=== PATIENT | male | born 1955 | race African-American/Black ===

== ENCOUNTER 2023-12-05 15:42 | Observation (INO) ==
--- NOTE | 2023-12-05 16:41 | DR.GENAD ---
HPI Time Seen Time Seen by Provider: 12/05/23 16:39 PCP Primary Care Physician: Ayaka Complaint/Symptoms Chief Complaint Doctors Comments: 68-year-old male sent in to the emergency room for evaluation. Has been having swelling of his left upper extremity over the past week. No known trauma. Has had a slight cough, not very productive. Denies fevers, having some show chills. No nausea, vomiting, bowel or bladder issues. Seen and medical provider's office, referred here for admission for pneumonia (dx'd with that last pm at another ER), possible [facility] admission as well. Patient with bilateral AKAs. Patient provided prescription bottles to the nurse, they are all empty. Chief Complaint:: Patient brought by daughter to ED after visit with Jenny Sinha in [place]. She called Dr Marley and he wanted patient evaluated in the ED. Patient 's chief complaint is edema to left arm x 1 week. His daughter states he lives by himself and had a CVA in Oct. THey are seeking [facility] placement in a [facility]. COVID-19 Coronavirus risk:travel/contact w/high risk person: No Has patient experienced Coronavirus symptoms: No Nurses notes reviewed Nurses Notes Review: Yes Source History Provided: Patient and Family Member Mode of Arrival Mode of Arrival: Wheelchair Timing Onset of Chief Complaint: 11/28/23 PMH PMH Past Medical History: Yes Past Medical History: CVA, Diabetes and Hypertension Past Medical History Comment: CA of Lungs? Past Surgical History: Yes Past Surgical History Comment: Bilateral AKA Family History History of Family Medical Conditions: Yes Family Medical History: Diabetes Mellitus, Cancer, Coronary Artery Disease and Hypertension Social History Does patient currently use any type of tobacco product: Yes Have you used tobacco products in the last 12 months: Yes Type of Tobacco Use: Cigarettes Does any household member use tobacco: Yes Alcohol Use: None Do you use any recreational Drugs:: No Lives With: Alone Lives Where: Home Travel Risk Coronavirus risk:travel/contact w/high risk person: No Has patient experienced Coronavirus symptoms: No Infectious screening In the last 2 months have you had wt loss of >10#?: NO Have you had fever, night sweats or hemotysis?: No Have you traveled outside the country in the last 6 months?: No Isolation: Standard ROS Review of Systems Constitutional: Chills and Weakness Eyes: No Symptoms Reported ENTM: No Symptoms Reported Respiratoy: Moist Cough Gastrointestinal/Abdominal: No Symptoms Reported Genitourinary: No Symptoms Reported Neurological: Weakness Musculoskeletal: See HPI Integumentary: No Symptoms Reported Hematologic/Lymphatic: No Symptoms Reported Psychiatric: No Symptoms Reported All Other Systems: Reviewed and Negative PE Vital Signs Vitals: Vital Signs Temperature 97.8 F Pulse Rate 86 Respiratory Rate 14 Blood Pressure 172/93 O2 Sat by Pulse Oximetry 98 General General Appearance: Alert and In No Apparent Distress Eyes Eye exam: PERRL and EOMI ENT ENT Exam: Normal Oropharynx and Mucous Membranes Moist Neck Neck Exam: Normal Inspection and Full ROM Chest Chest Inspection: Normal Inspection Respiratory Respiratory Exam: Normal Lung Sounds Bilat; negative Accessory Muscle Use or Respiratory Distress Cardiovascular Cardiovascular Exam: Regular Rate, Normal Rhythm and Normal Heart Sounds Abdominal Exam Abdominal Exam: Normal Bowel Sounds and Soft; negative Tenderness Extremities Extremities Exam: Edema (L hand/forearm. + pulses intact. + bilateral AKAs.) Back Back Exam: Normal Inspection Neurologic Neurological Exam: Alert, Oriented X3 and CN II-XII Intact; negative Motor Sensory Deficit Skin Skin Exam: Warm and Dry COURSE Treatment Treatment: 60-year-old male sent in for evaluation prior to admission. His edema of the left hand, no known trauma, and has a cough. Reportedly diagnosed with pneumonia at another ER last p.m. Workup initiated. 1941 -chest x-ray shows a rather large consolidation of the right lower lobe, concerning more for mass than true pneumonia to me. Roughly 7 x 5 cms, oval shaped. White count normal. Mild anemia with hemoglobin 10.1 chemistries show elevated glucose at 527, low albumin at 2.0. Patient does have a history of diabetes, has an empty bottle for oral hypoglycemic. Patient given IV fluids, given IV regular insulin 10 units bolus. Not in DKA, more likely poorly controlled type 2 diabetes. Given IV Rocephin for prophylactic coverage of possible pneumonia will pursue a CT of the chest with IV contrast to further delineate the consolidation. Discussed with Dr. Marley after initial examination. Will admit the patient to the hospital. [facility] Labs Reviewed Laboratory Results Reviewed?: Yes 12/10/23 05:17 12/10/23 05:17 Laboratory: 12/05/23 17:25 Blood Blood Culture - Preliminary 12/05/23 16:50 Blood Blood Culture - Preliminary WBC 8.9 X10^3/uL (3.6-10.0) 12/05/23 16:50 RBC 4.09 X10^6/uL (4.7-6.0) L 12/05/23 16:50 Hgb 10.1 g/dL (13.5-18.0) L 12/05/23 16:50 Hct 32.2 % (42.0-54.0) L 12/05/23 16:50 MCV 78.8 fL (80.0-100.0) L 12/05/23 16:50 MCH 24.8 pg (27.0-34.0) L 12/05/23 16:50 MCHC 31.5 g/dL (33.0-35.0) L 12/05/23 16:50 RDW 20.2 % (11.6-16.5) H 12/05/23 16:50 Plt Count 400 X10^3/uL (150.0-450.0) 12/05/23 16:50 Plt Count Comment Adequate (ADEQUATE) 12/05/23 16:50 MPV 7.5 fL (7.4-11.0) 12/05/23 16:50 Neut % (Auto) 76.4 % (42.0-75.0) H 12/05/23 16:50 Lymph % (Auto) 15.9 % (21.0-51.0) L 12/05/23 16:50 [place] % (Auto) 6.8 % (0.0-13.0) 12/05/23 16:50 Eos % (Auto) 0.2 % (0.9-2.9) L 12/05/23 16:50 Baso % (Auto) 0.7 % (0.2-1.0) 12/05/23 16:50 Neut # (Auto) 6.8 x10^3/uL (2.2-4.8) H 12/05/23 16:50 Lymph # (Auto) 1.4 X10^3/uL (1.3-2.9) 12/05/23 16:50 [place] # (Auto) 0.6 x10^3/uL (0.3-0.8) 12/05/23 16:50 Eos # (Auto) 0.0 x10^3/uL (0.0-0.2) 12/05/23 16:50 Baso # (Auto) 0.1 X10^3/uL (0.0-0.1) 12/05/23 16:50 Absolute Nucleated RBC 0.0 /100WBC 12/05/23 16:50 Plt Morphology Comment Normal (NORMAL) 12/05/23 16:50 RBC Morphology Abnormal (NORMAL) 12/05/23 16:50 Hypochromasia Slight A 12/05/23 16:50 Poikilocytosis Slight A 12/05/23 16:50 Anisocytosis 1+ A 12/05/23 16:50 Microcytosis Slight A 12/05/23 16:50 Target Cells Slight A 12/05/23 16:50 Sodium 137 mmol/L (136-145) 12/05/23 16:50 Corrected Sodium 147 mmol/L (136-145) H 12/05/23 16:50 Potassium 4.0 mmol/L (3.5-5.1) 12/05/23 16:50 Chloride 104 mmol/L (98-107) 12/05/23 16:50 Carbon Dioxide 28.6 mmol/L (21-32) 12/05/23 16:50 BUN 8 mg/dL (7-18) 12/05/23 16:50 Creatinine 0.74 mg/dL (0.70-1.30) 12/05/23 16:50 Est GFR (MDRD) Af Amer > 60 (>60) 12/05/23 16:50 Est GFR (MDRD) Non-Af > 60 (>60) 12/05/23 16:50 Glucose 527 mg/dL (65-99) H* 12/05/23 16:50 POC Glucose (mg/dL) 235 mg/dL (65-99) H 12/05/23 21:55 Lactic Acid 2.0 mmol/L (0.4-2.0) 12/05/23 16:50 Calcium 8.4 mg/dL (8.5-10.1) L 12/05/23 16:50 Corrected Calcium 10.0 mg/dL (8.5-10.1) 12/05/23 16:50 Total Bilirubin 0.30 mg/dL (0.2-1.0) 12/05/23 16:50 AST 20 Units/L (15-37) 12/05/23 16:50 ALT 20 Units/L (12-78) 12/05/23 16:50 Alkaline Phosphatase 126 Units/L (46-116) H 12/05/23 16:50 Total Protein 6.6 g/dL (6.4-8.2) 12/05/23 16:50 Albumin 2.0 g/dL (3.4-5.0) L 12/05/23 16:50 Globulin 4.6 g/dL (2.5-4.5) H 12/05/23 16:50 Albumin/Globulin Ratio 0.4 Ratio (1.1-2.1) L 12/05/23 16:50 Lipase 8 Units/L (16-77) L 12/05/23 16:50 XRAY XRAY Interpreted by: Both X-ray Results: EXAM: CHEST W/O CON HISTORY: edema to left arm x 1 week. His daughter states he lives by himself and had a CVA in Oct. 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 Advanced atherosclerotic calcifications are present in the aorta. Extensive coronary atherosclerotic calcifications are present. There is a small right pleural effusion. Limited visualization of the upper abdomen demonstrates multiple calcifications throughout the pancreas consistent with chronic calcific pancreatitis. Bilateral renal calcifications may be vascular or represent stones. Lung windows demonstrate severe bullous emphysema. In the right lower lobe there is a suspicious mass measuring approximately 7 cm with small central cavitation. There are mild adjacent airspace infiltrates. Airspace infiltrates are visible in the left lower lobe. No suspicious bony lesion. IMPRESSION: Large, partially cavitary mass in the right lower lobe is worrisome for possible malignant lesion. An infectious process would be a differential consideration. Severe bullous emphysema. Bibasilar pneumonia. Chronic calcific pancreatitis. Additional findings as described. Dose reduction techniques including automated exposure control (AEC) and adjustment of mA and kv were utilized. THIS IS AN ELECTRONICALLY VERIFIED FINAL REPORT 12/05/2023 8:31 PM - Electronically signed by Tyshawn Strickland MD Opioid Opioid Risk Tool Age (Joel box if 16-45): No History of Preadolescent Sexual Abuse: No Total: 0 Total Score Risk Category: Low Risk Copyright: Ramon AMBROCIO predicting aberrant behaviors Discharge Plan Diagnosis Discharge Problem: Poorly controlled diabetes mellitus, Pneumonia, Lung mass, Weakness Discharge Plan Patient Disposition: 09 ADMITTED INPATIENT Condition: Stable
[2023-12-05 17:40] LABS: BASOPHILS # (AUTO) 0.1 X10^3/uL (0.0-0.1); BASOPHILS % (AUTO) 0.7 % (0.2-1.0); EOSINOPHILS % (AUTO) 0.2 % (0.9-2.9); HEMATOCRIT 32.2 % (42.0-54.0); HEMOGLOBIN 10.1 g/dL (13.5-18.0); LYMPHOCYTES # (AUTO) 1.4 X10^3/uL (1.3-2.9); LYMPHOCYTES % (AUTO) 15.9 % (21.0-51.0); MEAN CORPUSCULAR HEMOGLOBIN 24.8 pg (27.0-34.0); MEAN CORPUSCULAR HGB CONC 31.5 g/dL (33.0-35.0); MEAN CORPUSCULAR VOLUME 78.8 fL (80.0-100.0); MEAN PLATELET VOLUME 7.5 fL (7.4-11.0); MONOCYTES # (AUTO) 0.6 x10^3/uL (0.3-0.8); MONOCYTES % (AUTO) 6.8 % (0.0-13.0); NEUTROPHILS # (AUTO) 6.8 x10^3/uL (2.2-4.8); NEUTROPHILS % (AUTO) 76.4 % (42.0-75.0); PLATELET COUNT 400 X10^3/uL (150.0-450.0); RED BLOOD COUNT 4.09 X10^6/uL (4.7-6.0); RED CELL DISTRIBUTION WIDTH 20.2 % (11.6-16.5); WHITE BLOOD COUNT 8.9 X10^3/uL (3.6-10.0)
[2023-12-05 17:50] LABS: ALANINE AMINOTRANSFERASE 20 Units/L (12-78); ALKALINE PHOSPHATASE 126 Units/L (46-116); ASPARTATE AMINO TRANSFERASE 20 Units/L (15-37); BLOOD UREA NITROGEN 8 mg/dL (7-18); CALCIUM 8.4 mg/dL (8.5-10.1); CARBON DIOXIDE 28.6 mmol/L (21-32); CHLORIDE 104 mmol/L (98-107); COR NA(FOR HYPERGLY) 147 mmol/L (136-145); CREATININE 0.74 mg/dL (0.70-1.30); LIPASE 8 Units/L (16-77); SODIUM 137 mmol/L (136-145); TOTAL PROTEIN 6.6 g/dL (6.4-8.2); eGFR NON BLACK RACES > 60 (>60)
[2023-12-05 18:09] LABS: HYPOCHROMASIA SLIGHT; PLATELET MORPHOLOGY COMMENT NORMAL (NORMAL)
[2023-12-05 18:10] LABS: ANISOCYTOSIS 1+; MICROCYTOSIS SLIGHT; TARGET CELLS SLIGHT
[2023-12-05 18:17] LABS: GLUCOSE 527 mg/dL (65-99)
[2023-12-05] MEDS ORDERED: NS 1,000 ML IV 1,000 ML ONE (18:31)
[2023-12-05] MEDS: NS 1,000 ML IV 500 ML IV ONE (18:35)
[2023-12-05] MEDS ORDERED: ROCEPHIN VIAL 1 GRAM ONE (19:53)
[2023-12-05] MEDS ORDERED: NovoLIN R (or HumuLIN R) ONE (19:54)
[2023-12-05] MEDS: ROCEPHIN VIAL 1 GRAM IVP ONE (19:59)
[2023-12-05] MEDS: NovoLIN R (or HumuLIN R) IV ONE (20:00)
[2023-12-05] MEDS: SNACK - Diabetic Appropriate PO SCH (20:07)
--- NOTE | 2023-12-05 20:27 | RAD ---
EXAM:HAND, LEFTHISTORY:swelling, pain;COMPARISON:None availableTECHNIQUE:Left hand three viewsFINDINGS:Chronic appearing deformities of the distal phalanges of digits 2 and 5. Bone cyst noted in the scaphoid bone. The hand and wrist demonstrates swollen soft tissues. No displaced fracture.IMPRESSION:Chronic appearing deformities of the distal phalanges suggests changes of chronic inflammation which can be seen in disease processes such as Raynaud's disease, scleroderma and inflammatory arthritis. Serum studies may be helpful.Generalized soft tissue swelling is nonspecific.No displaced fracture.THIS IS AN ELECTRONICALLY VERIFIED FINAL REPORT12/05/2023 8:24 PM - Electronically signed by Tyshawn Strickland MD
--- NOTE | 2023-12-05 20:34 | CT ---
EXAM:CHEST W/O CONHISTORY:edema to left arm x 1 week. His daughter states he lives by himself and had a CVA in Oct. They are seeking rodent exterminator [facility]COMPARISON:Frontal chest radiograph December 05, 2023TECHNIQUE:CT of the chest without intravenous contrastFINDINGS:Sensitivity is reduced without intravenous contrast. Advanced atherosclerotic calcifications are present in the aorta. Extensive coronary atherosclerotic calcifications are present. There is a small right pleural effusion.Limited visualization of the upper abdomen demonstrates multiple calcifications throughout the pancreas consistent with chronic calcific pancreatitis. Bilateral renal calcifications may be vascular or represent stones.Lung windows demonstrate severe bullous emphysema. In the right lower lobe there is a suspicious mass measuring approximately 7 cm with small central cavitation. There are mild adjacent airspace infiltrates.Airspace infiltrates are visible in the left lower lobe. No suspicious bony lesion.IMPRESSION:Large, partially cavitary mass in the right lower lobe is worrisome for possible malignant lesion. An infectious process would be a differential consideration.Severe bullous emphysema.Bibasilar pneumonia.Chronic calcific pancreatitis.Additional findings as described.Dose reduction techniques including automated exposure control (AEC) and adjustment of mA and kv were utilized.THIS IS AN ELECTRONICALLY VERIFIED FINAL REPORT12/05/2023 8:31 PM - Electronically signed by Tyshawn Strickland MD
[2023-12-05 23:40] VITALS: BMI 57.7
[2023-12-06] MEDS: NS 1,000 ML IV 1,000 ML IV SCH (00:01)
[2023-12-06 05:10] LABS: BASOPHILS % (AUTO) 0.4 % (0.2-1.0); EOSINOPHILS % (AUTO) 0.4 % (0.9-2.9); HEMATOCRIT 29.3 % (42.0-54.0); HEMOGLOBIN 9.4 g/dL (13.5-18.0); LYMPHOCYTES # (AUTO) 1.5 X10^3/uL (1.3-2.9); LYMPHOCYTES % (AUTO) 15.1 % (21.0-51.0); MEAN CORPUSCULAR HEMOGLOBIN 24.8 pg (27.0-34.0); MEAN CORPUSCULAR VOLUME 77.4 fL (80.0-100.0); MEAN PLATELET VOLUME 7.5 fL (7.4-11.0); MONOCYTES # (AUTO) 0.6 x10^3/uL (0.3-0.8); MONOCYTES % (AUTO) 6.3 % (0.0-13.0); NEUTROPHILS # (AUTO) 7.7 x10^3/uL (2.2-4.8); NEUTROPHILS % (AUTO) 77.8 % (42.0-75.0); PLATELET COUNT 398 X10^3/uL (150.0-450.0); RED BLOOD COUNT 3.79 X10^6/uL (4.7-6.0); RED CELL DISTRIBUTION WIDTH 19.3 % (11.6-16.5); WHITE BLOOD COUNT 9.8 X10^3/uL (3.6-10.0)
[2023-12-06 05:21] LABS: ALANINE AMINOTRANSFERASE 17 Units/L (12-78); ALBUMIN 1.9 g/dL (3.4-5.0); ALKALINE PHOSPHATASE 116 Units/L (46-116); ASPARTATE AMINO TRANSFERASE 17 Units/L (15-37); BLOOD UREA NITROGEN 7 mg/dL (7-18); CALCIUM 8.2 mg/dL (8.5-10.1); CARBON DIOXIDE 25.4 mmol/L (21-32); CHLORIDE 106 mmol/L (98-107); COR CA(FOR HYPOALB) 9.9 mg/dL (8.5-10.1); COR NA(FOR HYPERGLY) 141 mmol/L (136-145); CREATININE 0.47 mg/dL (0.70-1.30); GLUCOSE 130 mg/dL (65-99); POTASSIUM 3.7 mmol/L (3.5-5.1); SODIUM 140 mmol/L (136-145); TOTAL PROTEIN 6.1 g/dL (6.4-8.2); eGFR NON BLACK RACES > 60 (>60)
[2023-12-06] MEDS ORDERED: CONSULT PHARMACY - POTASSIUM & MAGNESIUM XX SCH (06:00)
--- NOTE | 2023-12-06 06:55 | RAD ---
EXAM: Portable chest HISTORY: Pneumonia COMPARISON: 11/27/2023 chest x-ray and chest CT FINDINGS: Heart size is normal. Anahy are normal. Lungs are hyperinflated. Emphysematous changes are presen t in the upper lobes. There is a 6.3 x 8 cm right lower lobe mass present. Although this could repr esent a round pneumonia, neoplasm must be excluded. Pulmonary consultation is recommended in order t o determine if bronchoscopy, PET-CT, or percutaneous biopsy is indicated at this time. Remainder of the lung casey are clear. IMPRESSION: 6.3 x 8 cm right lower lobe mass. Neoplasm must be excluded. Pulmonary consultation recommended. THIS IS AN ELECTRONICALLY VERIFIED FINAL REPORT 12/06/2023 6:52 AM - Electronically signed by Naresh Gallego MD
[2023-12-06] MEDS: ROCEPHIN VIAL 1 GRAM 1 G in NS 100 ML IV 100 ML IV SCH (08:44)
[2023-12-06] MEDS: K-DUR TAB 20 MEQ PO SCH (08:45)
[2023-12-06] MEDS: PULMICORT NEB TX 0.5 MG NEB SCH (08:46)
[2023-12-06] MEDS: DUONEB 0.5 MG/3 MG (3 mL) NEB SCH (08:46)
[2023-12-06 09:04] LABS: POIKILOCYTOSIS SLIGHT
[2023-12-06] MEDS: MAGNESIUM SULFATE 1 GRAM/100 mL PREMIX 1 G/100 ML BAG IV SCH (10:00)
[2023-12-06] MEDS: PROCRIT or EPOGEN VIAL 10,000 UNITS SC ONE (10:00)
[2023-12-06] MEDS: GLUCOPHAGE XR 24-HR PO SCH (10:10)
[2023-12-06] MEDS: ACTOS PO SCH (10:10)
[2023-12-06] MEDS: PLAVIX PO SCH (10:22)
[2023-12-06] MEDS: MICARDIS PO SCH (10:22)
[2023-12-06] MEDS: FARXIGA PO SCH (13:13)
[2023-12-06] MEDS: NovoLIN R (or HumuLIN R) SUBCUT PRN (13:22)
[2023-12-06] MEDS ORDERED: SNACK - Diabetic Appropriate PO SCH (20:00)
[2023-12-07 05:29] LABS: ALANINE AMINOTRANSFERASE 13 Units/L (12-78); ALBUMIN 1.7 g/dL (3.4-5.0); ALKALINE PHOSPHATASE 111 Units/L (46-116); ASPARTATE AMINO TRANSFERASE 20 Units/L (15-37); BLOOD UREA NITROGEN 10 mg/dL (7-18); CALCIUM 8.1 mg/dL (8.5-10.1); CARBON DIOXIDE 23.8 mmol/L (21-32); CHLORIDE 106 mmol/L (98-107); COR CA(FOR HYPOALB) 9.9 mg/dL (8.5-10.1); COR NA(FOR HYPERGLY) 139 mmol/L (136-145); CREATININE 0.62 mg/dL (0.70-1.30); GLUCOSE 150 mg/dL (65-99); MAGNESIUM 1.8 mg/dL (2.0-2.9); SODIUM 138 mmol/L (136-145); TOTAL PROTEIN 5.9 g/dL (6.4-8.2); eGFR NON BLACK RACES > 60 (>60)
[2023-12-07 05:30] LABS: BASOPHILS % (AUTO) 0.2 % (0.2-1.0); EOSINOPHILS % (AUTO) 0.1 % (0.9-2.9); HEMATOCRIT 29.7 % (42.0-54.0); HEMOGLOBIN 9.4 g/dL (13.5-18.0); LYMPHOCYTES # (AUTO) 1.2 X10^3/uL (1.3-2.9); LYMPHOCYTES % (AUTO) 11.4 % (21.0-51.0); MEAN CORPUSCULAR HEMOGLOBIN 24.5 pg (27.0-34.0); MEAN CORPUSCULAR HGB CONC 31.5 g/dL (33.0-35.0); MEAN CORPUSCULAR VOLUME 77.8 fL (80.0-100.0); MEAN PLATELET VOLUME 7.7 fL (7.4-11.0); MONOCYTES # (AUTO) 0.9 x10^3/uL (0.3-0.8); MONOCYTES % (AUTO) 8.6 % (0.0-13.0); NEUTROPHILS # (AUTO) 8.5 x10^3/uL (2.2-4.8); NEUTROPHILS % (AUTO) 79.7 % (42.0-75.0); PLATELET COUNT 386 X10^3/uL (150.0-450.0); RED BLOOD COUNT 3.82 X10^6/uL (4.7-6.0); RED CELL DISTRIBUTION WIDTH 19.7 % (11.6-16.5); WHITE BLOOD COUNT 10.7 X10^3/uL (3.6-10.0)
[2023-12-07] MEDS ORDERED: CONSULT PHARMACY - POTASSIUM & MAGNESIUM XX SCH (06:00)
[2023-12-07] MEDS: MAG-OX TAB PO SCH (08:42)
[2023-12-07] MEDS: FLOMAX PO SCH (08:43)
[2023-12-07] MEDS: PROCRIT or EPOGEN VIAL 10,000 UNITS SC ONE (09:57)
[2023-12-07] MEDS: MAGNESIUM SULFATE 1 GRAM/100 mL PREMIX 1 G/100 ML BAG IV SCH (09:57)
[2023-12-07] MEDS: NS 100 ML IV 100 ML with VENOFER 200 MG IV ONE (14:33)
[2023-12-08 04:42] LABS: HEMOGLOBIN 9.1 g/dL (13.5-18.0); MONOCYTES # (AUTO) 0.8 x10^3/uL (0.3-0.8)
[2023-12-08 04:59] LABS: BASOPHILS % (AUTO) 0.6 % (0.2-1.0); EOSINOPHILS % (AUTO) 0.5 % (0.9-2.9); HEMATOCRIT 28.9 % (42.0-54.0); LYMPHOCYTES # (AUTO) 0.9 X10^3/uL (1.3-2.9); LYMPHOCYTES % (AUTO) 12.1 % (21.0-51.0); MEAN CORPUSCULAR HEMOGLOBIN 24.5 pg (27.0-34.0); MEAN CORPUSCULAR HGB CONC 31.4 g/dL (33.0-35.0); MEAN PLATELET VOLUME 7.5 fL (7.4-11.0); MONOCYTES % (AUTO) 10.6 % (0.0-13.0); NEUTROPHILS # (AUTO) 5.6 x10^3/uL (2.2-4.8); NEUTROPHILS % (AUTO) 76.2 % (42.0-75.0); PLATELET COUNT 419 X10^3/uL (150.0-450.0); RED CELL DISTRIBUTION WIDTH 19.5 % (11.6-16.5); WHITE BLOOD COUNT 7.4 X10^3/uL (3.6-10.0)
[2023-12-08 05:01] LABS: ALANINE AMINOTRANSFERASE 12 Units/L (12-78); ALBUMIN 1.8 g/dL (3.4-5.0); ALKALINE PHOSPHATASE 110 Units/L (46-116); ASPARTATE AMINO TRANSFERASE 15 Units/L (15-37); BLOOD UREA NITROGEN 14 mg/dL (7-18); CARBON DIOXIDE 22.9 mmol/L (21-32); CHLORIDE 106 mmol/L (98-107); COR CA(FOR HYPOALB) 9.8 mg/dL (8.5-10.1); COR NA(FOR HYPERGLY) 139 mmol/L (136-145); CREATININE 0.72 mg/dL (0.70-1.30); GLUCOSE 166 mg/dL (65-99); MAGNESIUM 2.1 mg/dL (2.0-2.9); POTASSIUM 3.9 mmol/L (3.5-5.1); SODIUM 137 mmol/L (136-145); TOTAL PROTEIN 6.1 g/dL (6.4-8.2); eGFR NON BLACK RACES > 60 (>60)
[2023-12-08] MEDS: ROCEPHIN VIAL 1 GRAM IM SCH (08:54)
[2023-12-08] MEDS: NORCO 5/325 MG TAB PO PRN (21:06)
[2023-12-09 05:43] LABS: BASOPHILS # (AUTO) 0.1 X10^3/uL (0.0-0.1); BASOPHILS % (AUTO) 0.8 % (0.2-1.0); EOSINOPHILS # (AUTO) 0.1 x10^3/uL (0.0-0.2); HEMATOCRIT 28.2 % (42.0-54.0); LYMPHOCYTES # (AUTO) 1.4 X10^3/uL (1.3-2.9); LYMPHOCYTES % (AUTO) 20.5 % (21.0-51.0); MEAN CORPUSCULAR HEMOGLOBIN 24.9 pg (27.0-34.0); MEAN CORPUSCULAR VOLUME 77.9 fL (80.0-100.0); MEAN PLATELET VOLUME 7.6 fL (7.4-11.0); MONOCYTES # (AUTO) 0.7 x10^3/uL (0.3-0.8); MONOCYTES % (AUTO) 9.7 % (0.0-13.0); NEUTROPHILS # (AUTO) 4.7 x10^3/uL (2.2-4.8); PLATELET COUNT 437 X10^3/uL (150.0-450.0); RED BLOOD COUNT 3.62 X10^6/uL (4.7-6.0); RED CELL DISTRIBUTION WIDTH 20.1 % (11.6-16.5); WHITE BLOOD COUNT 6.9 X10^3/uL (3.6-10.0)
[2023-12-09 05:55] LABS: ALANINE AMINOTRANSFERASE 8 Units/L (12-78); ALBUMIN 1.9 g/dL (3.4-5.0); ALKALINE PHOSPHATASE 113 Units/L (46-116); ASPARTATE AMINO TRANSFERASE 19 Units/L (15-37); BLOOD UREA NITROGEN 19 mg/dL (7-18); CALCIUM 8.3 mg/dL (8.5-10.1); CARBON DIOXIDE 23.6 mmol/L (21-32); CHLORIDE 107 mmol/L (98-107); COR NA(FOR HYPERGLY) 139 mmol/L (136-145); CREATININE 0.66 mg/dL (0.70-1.30); GLUCOSE 162 mg/dL (65-99); SODIUM 138 mmol/L (136-145); TOTAL PROTEIN 6.3 g/dL (6.4-8.2); eGFR NON BLACK RACES > 60 (>60)
[2023-12-09 06:03] LABS: ANISOCYTOSIS 1+; HYPOCHROMASIA SLIGHT; MICROCYTOSIS SLIGHT; PLATELET MORPHOLOGY COMMENT NORMAL (NORMAL); TARGET CELLS PRESENT
[2023-12-09] MEDS ORDERED: CONSULT PHARMACY - POTASSIUM & MAGNESIUM XX SCH ×2 (08:00→12:00)
[2023-12-09] MEDS: MAG-OX TAB PO SCH (09:34)
[2023-12-09] MEDS: XYLOCAINE 1 % (PLAIN) IJ SCH (09:34)
[2023-12-09] MEDS: NICOTINE PATCH TD SCH (17:31)
[2023-12-10 05:58] LABS: EOSINOPHILS % (AUTO) 0.4 % (0.9-2.9); MONOCYTES # (AUTO) 0.7 x10^3/uL (0.3-0.8); WHITE BLOOD COUNT 8.8 X10^3/uL (3.6-10.0)
[2023-12-10 06:02] LABS: BLOOD UREA NITROGEN 17 mg/dL (7-18); CALCIUM 8.4 mg/dL (8.5-10.1); CARBON DIOXIDE 23.2 mmol/L (21-32); CHLORIDE 106 mmol/L (98-107); CREATININE 0.65 mg/dL (0.70-1.30); GLUCOSE 86 mg/dL (65-99); POTASSIUM 3.7 mmol/L (3.5-5.1); eGFR NON BLACK RACES > 60 (>60)
[2023-12-10 06:03] LABS: BASOPHILS # (AUTO) 0.1 X10^3/uL (0.0-0.1); BASOPHILS % (AUTO) 0.6 % (0.2-1.0); HEMATOCRIT 29.5 % (42.0-54.0); HEMOGLOBIN 9.3 g/dL (13.5-18.0); LYMPHOCYTES # (AUTO) 1.5 X10^3/uL (1.3-2.9); LYMPHOCYTES % (AUTO) 16.5 % (21.0-51.0); MEAN CORPUSCULAR HEMOGLOBIN 24.7 pg (27.0-34.0); MEAN CORPUSCULAR HGB CONC 31.4 g/dL (33.0-35.0); MEAN CORPUSCULAR VOLUME 78.6 fL (80.0-100.0); MEAN PLATELET VOLUME 7.7 fL (7.4-11.0); MONOCYTES % (AUTO) 7.9 % (0.0-13.0); NEUTROPHILS # (AUTO) 6.6 x10^3/uL (2.2-4.8); NEUTROPHILS % (AUTO) 74.6 % (42.0-75.0); PLATELET COUNT 467 X10^3/uL (150.0-450.0); RED BLOOD COUNT 3.75 X10^6/uL (4.7-6.0); RED CELL DISTRIBUTION WIDTH 19.7 % (11.6-16.5)
[2023-12-10 06:25] LABS: ALANINE AMINOTRANSFERASE 10 Units/L (12-78); ALBUMIN 1.9 g/dL (3.4-5.0); ALKALINE PHOSPHATASE 112 Units/L (46-116); ASPARTATE AMINO TRANSFERASE 17 Units/L (15-37); COR CA(FOR HYPOALB) 10.1 mg/dL (8.5-10.1); MAGNESIUM 1.9 mg/dL (2.0-2.9); TOTAL PROTEIN 6.5 g/dL (6.4-8.2)
[2023-12-10 06:30] LABS: HYPOCHROMASIA SLIGHT; PLATELET MORPHOLOGY COMMENT NORMAL (NORMAL)
[2023-12-10 06:31] LABS: ANISOCYTOSIS SLIGHT; BURR CELLS SLIGHT; MICROCYTOSIS SLIGHT; TARGET CELLS 1+
[2023-12-10 06:35] LABS: SODIUM 140 mmol/L (136-145)
[2023-12-10] MEDS ORDERED: CONSULT PHARMACY - POTASSIUM & MAGNESIUM XX SCH ×2 (07:00)
[2023-12-10] MEDS: K-DUR TAB 20 MEQ PO SCH (10:19)
[2023-12-10] MEDS: CHECK PATCH XX SCH (10:20)
[2023-12-10] MEDS: MAG-OX TAB PO SCH (10:20)
[2023-12-10] MEDS: RESTORIL CAP 15 MG PO PRN (23:21)
[2023-12-11 05:53] LABS: BASOPHILS # (AUTO) 0.1 X10^3/uL (0.0-0.1); EOSINOPHILS # (AUTO) 0.1 x10^3/uL (0.0-0.2)
[2023-12-11 06:04] LABS: EOSINOPHILS % (AUTO) 1.2 % (0.9-2.9); HEMATOCRIT 28.4 % (42.0-54.0); HEMOGLOBIN 8.9 g/dL (13.5-18.0); LYMPHOCYTES # (AUTO) 1.7 X10^3/uL (1.3-2.9); LYMPHOCYTES % (AUTO) 25.9 % (21.0-51.0); MEAN CORPUSCULAR HEMOGLOBIN 24.8 pg (27.0-34.0); MEAN CORPUSCULAR HGB CONC 31.4 g/dL (33.0-35.0); MEAN PLATELET VOLUME 7.4 fL (7.4-11.0); MONOCYTES # (AUTO) 0.7 x10^3/uL (0.3-0.8); MONOCYTES % (AUTO) 10.8 % (0.0-13.0); NEUTROPHILS % (AUTO) 61.1 % (42.0-75.0); PLATELET COUNT 488 X10^3/uL (150.0-450.0); RED CELL DISTRIBUTION WIDTH 19.9 % (11.6-16.5); WHITE BLOOD COUNT 6.5 X10^3/uL (3.6-10.0)
[2023-12-11 06:11] LABS: ALANINE AMINOTRANSFERASE 12 Units/L (12-78); ALBUMIN 1.9 g/dL (3.4-5.0); ALKALINE PHOSPHATASE 107 Units/L (46-116); ASPARTATE AMINO TRANSFERASE 17 Units/L (15-37); BLOOD UREA NITROGEN 17 mg/dL (7-18); CALCIUM 8.2 mg/dL (8.5-10.1); CHLORIDE 107 mmol/L (98-107); COR CA(FOR HYPOALB) 9.9 mg/dL (8.5-10.1); COR NA(FOR HYPERGLY) 139 mmol/L (136-145); CREATININE 0.58 mg/dL (0.70-1.30); GLUCOSE 114 mg/dL (65-99); POTASSIUM 3.9 mmol/L (3.5-5.1); SODIUM 139 mmol/L (136-145); TOTAL PROTEIN 6.3 g/dL (6.4-8.2); eGFR NON BLACK RACES > 60 (>60)
[2023-12-11 06:33] LABS: ANISOCYTOSIS SLIGHT; BURR CELLS SLIGHT; HELMET CELLS SLIGHT; MICROCYTOSIS SLIGHT; PLATELET MORPHOLOGY COMMENT NORMAL (NORMAL); POIKILOCYTOSIS 1+; SCHISTOCYTES SLIGHT
[2023-12-11 06:34] LABS: HYPOCHROMASIA SLIGHT; TARGET CELLS 1+
[2023-12-11 09:13] VITALS: RESP 18
[2023-12-11] MEDS: PROCRIT or EPOGEN VIAL 10,000 UNITS SC ONE (10:30)
[2023-12-11 12:50] VITALS: BP 175/85; PULSE 108; TEMP 98; O2SAT 100
== END 2023-12-11 15:45 ==
LOC: ER 15:42 → ICU 15:42 → MED/SURG 12-07 15:57
PROVIDERS: ADMIT Obstetrics & Gynecology Obstetrics; ATTEND Obstetrics & Gynecology Obstetrics
DX: Z66 Do not resuscitate; Z72.0 Tobacco use; J18.8 Other pneumonia, unspecified organism; E83.42 Hypomagnesemia; C34.90 Malignant neoplasm of unspecified part of unspecified bronchus or lung; N40.0 Benign prostatic hyperplasia without lower urinary tract symptoms; R91.8 Other nonspecific abnormal finding of lung field; I25.10 Atherosclerotic heart disease of native coronary artery without angina pectoris; E11.65 Type 2 diabetes mellitus with hyperglycemia; R53.1 Weakness; D64.89 Other specified anemias; I10 Essential (primary) hypertension